=== PATIENT | female | born 1980 | race African-American/Black ===

== ENCOUNTER 2016-06-18 22:44 | Emergency (ER) | payer SELFPAY ==
[2016-06-18 23:00] VITALS: BP 128/84; PULSE 88; TEMP 98; BMI 28.8
--- NOTE | 2016-06-19 00:07 | PDOC ---
History of Present Illness - General Chief Complaint: Back Pain Stated Complaint: ACUTE LOWER BACK PAIN Time Seen by Provider: 06/18/16 22:59 - History of Present Illness Initial Comments: This 36-year-old woman with no significant past medical history presents with lower back pain. She states that she was "wrestling" yesterday with a friend. No history of fall or direct impact to the lower back. Today, she was pumping gas into her car, she developed lower back pain when she leaned over. Since then, she has had significant pain with twisting and flexion of her back. No previous history of lower back pain. She denies pain/paresthesia/numbness or weakness of the lower extremities. Past History - Past Medical History Allergies/Adverse Reactions: Allergies Allergy/AdvReac Type Severity Reaction Status Date / Time Penicillins Allergy Verified 06/18/16 22:48 Home Medications: Ambulatory Orders Diclofenac Sodium [Voltaren -] 75 mg PO BID PRN #14 tablet. 06/19/16 Tizanidine HCl [Zanaflex (Nf) -] 2 mg PO TID PRN #12 tablet 06/19/16 - Psycho/Social/Smoking Cessation Hx Anxiety: No Suicidal Ideation: No Smoking History: Unknown if ever smoked Have you smoked in the past 12 months: No Number of Cigarettes Smoked Daily: 0 Information on smoking cessation initiated: No Hx Alcohol Use: No Drug/Substance Use Hx: No Substance Use Type: None Review of Systems - Review of Systems Able to Perform ROS?: Yes Comments:: 12 point review of systems is negative except for what is noted in the history of present illness *Physical Exam - Vital Signs Last Vital Signs Temp Pulse Resp BP Pulse Ox 98 F 88 14 128/84 100 06/18/16 22:50 06/18/16 22:50 06/18/16 22:50 06/18/16 22:50 06/18/16 22:50 - Physical Exam Comments: GENERAL: Adult female, alert and oriented 3, in no acute distress HEAD: Normal with no signs of trauma. EYES: PERRLA, EOMI, sclera anicteric, conjunctiva clear. ENT: Ears normal, nares patent, oropharynx clear without exudates. Dry mucous membranes. NECK: Normal range of motion, supple without lymphadenopathy, JVD, or masses. LUNGS: Breath sounds equal, clear to auscultation bilaterally. No wheezes, and no crackles. HEART:Regular rate and rhythm, normal S1 and S2 without murmur, rub or gallop. ABDOMEN:.normal bowel sounds No guarding,tenderness or rebound.No masses No distention. EXTREMITIES: Normal range of motion, no edema. No clubbing or cyanosis. No erythema, or tenderness. NEUROLOGICAL: Cranial nerves II through XII grossly intact. Normal speech. No focal neurologic deficit MUSCULOSKELETAL: Back non-tender to palpation, no CVA tenderness Pain on straight leg raising at 40 on the right/ 30 on the left SKIN: Warm, Dry, normal turgor, no rashes or lesions noted. Progress Note - Progress Note Progress Note: Clinical presentation most consistent with acute back pain related to sprain mechanism. Since there is no direct impact on the lower back, and no significant vertebral body tenderness, no x-rays will be performed. No new motor or sensory deficits seen on exam. No clear evidence of radiculopathy. Toradol 60 mg IM administered. Medical Decision Making - Medical Decision Making Patient stated that she had some relief in her pain after IM Toradol. Patient was able to get off the stretcher walk around without significant pain. Prescriptions for Zanaflex 2 mg up to 3 times a day for muscle spasms/ diclofenac 75 mg twice a day as needed for pain will be transmitted to patient' s pharmacy. She should also avoid strenuous activity involving lower body for the next few days. Should place warm compresses to the lower back as needed for muscle spasms. Patient will be given referral information for Dr. Tellez; she should follow-up with him if she has persistent lower back pain. She should return to the emergency room if she has severe pain or experiences numbness/weakness of her legs. *DC/Admit/Observation/Transfer Diagnosis at time of Disposition: Low back pain Qualifiers: Chronicity: acute Back pain laterality: midline Sciatica presence: without sciatica Qualified Code(s): M54.5 - Low back pain - Discharge Dispostion Disposition: HOME Condition at time of disposition: Stable - Prescriptions Prescriptions: Diclofenac Sodium [Voltaren -] 75 mg PO BID PRN #14 tablet.dr AVELAR Reason: Back Pain Tizanidine HCl [Zanaflex (Nf) -] 2 mg PO TID PRN #12 tablet PRN Reason: Muscle Spasms - Referrals Referrals: Markus Tellez MD [Staff Physician] - - Patient Instructions Printed Discharge Instructions: Low Back Pain Additional Instructions: Avoid strenuous activity for the next several days Local warmth to lower back as needed Diclofenac 75 mg twice a day as needed for pain (take with food) Zanaflex 2 mg up to 3 times a day as needed for muscle spasm Follow-up with if you have persistent pain or leg weakness/numbness
[2016-06-19] MEDS: KETOROLAC TROMETHAMINE 60 MG/2 ML VIAL IM ONE (00:17)
[2016-06-19] MEDS ORDERED: KETOROLAC TROMETHAMINE 60 MG/2 ML VIAL ONE (00:20)
[2016-06-19] MEDS: CYCLOBENZAPRINE HCL 10 MG TABLET (FP) PO ONE (01:29)
[2016-06-19] MEDS ORDERED: CYCLOBENZAPRINE HCL 10 MG TABLET (FP) ONE (01:31)
[2016-06-19] MEDS ORDERED: NAPROXEN 500 MG TABLET (FP) ONE (01:31)
[2016-06-19] MEDS: NAPROXEN 500 MG TABLET (FP) PO ONE (01:34)
== END 2016-06-19 01:33 | disposition home or self-care (01) ==
LOC: FER 22:44 → EDSEX 22:44 → FER 06-19 01:33
PROC: 3E0333Z Introduction of Anti-inflammatory into Peripheral Vein, Percutaneous Approach (ICD-10-PCS; principal; 2016-06-18)
DX: M54.5 Low back pain (principal)
CPT/HCPCS: 99282-25

== ENCOUNTER 2018-11-30 22:42 | Emergency (ER) | payer OTHER ==
[2018-11-30 23:27] VITALS: BP 143/101; PULSE 98; TEMP 98.9; BMI 30.4
== END 2018-12-01 00:04 | disposition left against medical advice (07) ==
LOC: JER 22:42
DX: Z53.21 Procedure and treatment not carried out due to patient leaving prior to being seen by health care provider (principal)
CPT/HCPCS: 99281-25

== ENCOUNTER 2022-07-12 19:23 | Emergency (ER) | payer OTHER ==
[2022-07-12 19:35] VITALS: BMI 28.8
[2022-07-12] MEDS ORDERED: NOREPINEPHRINE BITARTRATE 4,000 MCG in DEXTROSE 5%-WATER - 496 ML IV SCH (20:30)
[2022-07-12 20:32] LABS: BASO % 0.8 % (0-2.0); EOS % 2.7 % (0-4.5); HEMATOCRIT 38.6 % (32.4-45.2); HEMOGLOBIN 13.1 GM/dL (10.7-15.3); LYMPH % 33.7 % (8-40); MCH 30.1 pg (25.7-33.7); MCHC 33.9 g/dl (32.0-36.0); MEAN PLT VOLUME 8.9 fl (7.5-11.1); MONO % 5.4 % (3.8-10.2); NEUT % 57.4 % (42.8-82.8); PLATELET COUNT 239 10^3/uL (134-434); RBC 4.34 M/mm3 (3.60-5.2); RDW 13.6 % (11.6-15.6); WHITE BLOOD COUNT 7.6 K/mm3 (4.0-10.0)
[2022-07-12 20:40] LABS: EPI CELLS >36 /uL (0-25.1); HYALINE CASTS 3 /uL (0-3.1); URINE APPEARANCE CLEAR; URINE BACTERIA 431 /uL (0-1359); URINE BILIRUBIN NEGATIVE (NEGATIVE); URINE COLOR YELLOW; URINE GLUCOSE (UA) NEGATIVE (NEGATIVE); URINE KETONE TRACE (NEGATIVE); URINE LEUK ESTERASE NEGATIVE (NEGATIVE); URINE NITRITE NEGATIVE (NEGATIVE); URINE PROTEIN TRACE (NEGATIVE); URINE RBC 51 /uL (0-23.9); URINE WBC 52 /uL (0-25.8)
[2022-07-12 20:43] LABS: CHLORIDE 109 mmol/L (98-107); POTASSIUM 3.5 mmol/L (3.5-5.1); SODIUM 139 mmol/L (136-145)
[2022-07-12 20:45] LABS: ALBUMIN 4.2 g/dl (3.4-5.0); ANION GAP 5 MMOL/L (8-16); BLOOD UREA NITROGEN 12.7 mg/dL (7-18); CALCIUM 9.3 mg/dL (8.5-10.1); CO2 26 mmol/L (21-32); GLUCOSE,RANDOM 140 mg/dL (74-106)
[2022-07-12 20:48] LABS: SGOT/AST 13 U/L (15-37); SGPT/ALT 18 U/L (13-61)
[2022-07-12 20:50] LABS: URINE BENZODIAZEPINES NEGATIVE (NEGATIVE)
[2022-07-12 20:50] LABS: BILIRUBIN,TOTAL 0.4 mg/dL (0.2-1); TOT PROT 7.4 g/dl (6.4-8.2)
[2022-07-12 20:51] LABS: COCAINE, UR NEGATIVE (NEGATIVE); METHADONE, UR NEGATIVE (NEGATIVE); OPIATES, URI NEGATIVE (NEGATIVE); URINE AMPHETAMINES NEGATIVE (NEGATIVE); URINE BARBITURATES NEGATIVE (NEGATIVE)
[2022-07-12 20:51] LABS: ALK PHOS 69 U/L (45-117)
[2022-07-12 20:57] LABS: PHENCYCLIDINE,URINE POSITIVE (NEGATIVE)
[2022-07-12] MEDS ORDERED: ACETAMINOPHEN INJECTION 100 ML IVPB ONE (21:43)
[2022-07-12] MEDS ORDERED: ACETAMINOPHEN 1000 MG/100 ML BAG IVPB ONE (21:47)
[2022-07-12 23:34] VITALS: BP 127/84; PULSE 92; RESP 16; TEMP 98.2
[2022-07-13] MEDS ORDERED: KETOROLAC TROMETHAMINE 15 MG/ML VIAL IVPUSH ONE (00:09)
[2022-07-13] MEDS ORDERED: KETOROLAC TROMETHAMINE 15 MG/ML VIAL ONE (00:17)
== END 2022-07-13 00:43 | disposition home or self-care (01) ==
LOC: JER 19:23
PROC: 3E033NZ Introduction of Analgesics, Hypnotics, Sedatives into Peripheral Vein, Percutaneous Approach (ICD-10-PCS; principal; 2022-07-12)
PROC: 3E033GC Introduction of Other Therapeutic Substance into Peripheral Vein, Percutaneous Approach (ICD-10-PCS; 2022-07-13)
DX: S06.0X0A Concussion without loss of consciousness, initial encounter (principal); F16.90 Hallucinogen use, unspecified, uncomplicated; R47.9 Unspecified speech disturbances; R55 Syncope and collapse; W10.8XXA Fall (on) (from) other stairs and steps, initial encounter
CPT/HCPCS: 36415; 70450-TC; 70486-TC; 71046-TC-FY; 72125-TC; 72131-TC; 80053; 80307; 81003; 84484; 84703; 85025; 99285-25

== ENCOUNTER 2023-09-16 19:35 | Emergency (ER) | payer OTHER ==
[2023-09-16 20:00] VITALS: BP 143/98; BMI 27.4
[2023-09-16 23:55] VITALS: PULSE 94; RESP 18; TEMP 98.2
[2023-09-16] MEDS ORDERED: DIPHTH,PERTUSS(ACELL),TET 0.5 ML DISP.SYRIN IM ONE (23:55)
[2023-09-17] MEDS: DIPHTH,PERTUSS(ACELL),TET 0.5 ML DISP.SYRIN IM ONE
[2023-09-17] MEDS ORDERED: ACETAMINOPHEN 325 MG TABLET (FP) ONE (00:24)
[2023-09-17] MEDS: ACETAMINOPHEN 325 MG TABLET (FP) PO ONE (00:25)
== END 2023-09-17 01:31 | disposition home or self-care (01) ==
LOC: JER 19:35
PROC: 0HQ1XZZ Repair Face Skin, External Approach (ICD-10-PCS; principal; 2023-09-16)
PROC: 3E0234Z Introduction of Serum, Toxoid and Vaccine into Muscle, Percutaneous Approach (ICD-10-PCS; 2023-09-17)
DX: S01.511A Laceration without foreign body of lip, initial encounter (principal); S00.81XA Abrasion of other part of head, initial encounter; F10.129 Alcohol abuse with intoxication, unspecified; W01.198A Fall on same level from slipping, tripping and stumbling with subsequent striking against other object, initial encounter; Y90.9 Presence of alcohol in blood, level not specified; Z23 Encounter for immunization
CPT/HCPCS: 12013; 70450-TC; 70486-TC; 72125-TC; 90471; 90715; 99284-25